=== PATIENT | male | born 2000 | race Hispanic/Latino ===

== ENCOUNTER 2025-04-16 11:21 | Emergency (ER) | payer BC ==
[~2025-04-16] VITALS: Ht 180.3 cm; Wt 84.1 kg
[2025-04-16] MEDS ORDERED: DEPAKOTE500 MG PO (11:44)
[2025-04-16 12:58] VITALS: BP 143/80
== END 2025-04-16 12:58 | disposition home or self-care (01) ==
LOC: ED 11:21
DX: G58.8 Other specified mononeuropathies (principal); H93.3X1 Disorders of right acoustic nerve; Z79.899 Other long term (current) drug therapy
CPT/HCPCS: 99283